=== PATIENT | female | born 2000 | race Caucasian/White ===

== ENCOUNTER 2024-01-22 18:41 | Emergency (ER) | payer OTHER ==
[~2024-01-22] VITALS: Ht 157.5 cm; Wt 91.0 kg
[2024-01-22 18:48] VITALS: BP 112/83; RESP 18; TEMP 98.5; O2SAT 98
[2024-01-22 18:49] VITALS: PULSE 102
== END 2024-01-22 20:51 | disposition left against medical advice (07) ==
LOC: ER 18:41
DX: R10.12 Left upper quadrant pain (principal); R11.2 Nausea with vomiting, unspecified; Z53.21 Procedure and treatment not carried out due to patient leaving prior to being seen by health care provider